=== PATIENT | male | born 1955 | race Caucasian/White ===

== ENCOUNTER 2016-11-27 02:55 | Emergency (ER) | payer BC ==
[2016-11-27] MEDS ORDERED: ONDANSETRON HCL/PF 2 MG/ML VIAL ONE (03:03)
[2016-11-27 03:30] LABS: Hematocrit 43.1 % (42.0-52.0); Hemoglobin 14.7 gm/dL (13.5-18.0); Mean Cell Volume 85.2 fl (78-100); Mean Corpuscular Hemoglobin 29.1 pg (27-31); Mean Corpuscular Hgb Conc 34.1 g/dl (32-36); Mean Platelet Volume 9.9 fl (6.0-9.5); Neutrophil # 5.5 K/mm3 (1.3-6.0); Neutrophil % 69.4 % (42-75.0); Platelet Count 220 K/mm3 (150-450); Red Blood Count 5.06 M/mm3 (4.7-6.0); Red Cell Distribution Width 12.2 % (11.5-14.0); White Blood Count 7.9 K/mm3 (4.0-10.5)
[2016-11-27 03:39] LABS: Carboxyhemoglobin % 0.5 % (0.5-1.5); Methemoglobin % 0.4 % (0.41-1.15)
--- NOTE | 2016-11-27 03:41 | ERNOTE ---
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 HE SAYS HE HAS USED IT MANY TIMES BEFORE AND NEVER HAD A PROBLEM. HE REMEMBERS FEELING NAUSEATED AND SWEATY AND HE WENT DOWN TO THE FLOOR GENTLY AND PASSED OUT. A CO-WORKER CALLED EMS. HE IS UNSURE HOW LONG HE WAS OUT BUT CAME TO AND THEN HAD ANOTHER SPELL OF 10-15 SEC OF "PASSING OUT" WITNESSED BY EMS. RIGHT NOW HE IS ALERT, NO PAIN BUT HAS NAUSEA AND VOMITING. HE DENIES ANY PAIN. SAYS HE IS HEALTHY , ONLY TAKING A CHOLESTEROL MEDICATION. CO WORKER IS FINE. HE LAST ATE ABOUT 1800 AT [employer]. Prior Episodes: Present: no prior history Symptoms prior to episode: Present: diaphoresis, light headedness, nausea Character of event: Present: became unresponsive. Absent: seizure activity observed Location of Injury: Present: none Current Symptoms: Present: nausea, vomiting Review of Systems - Review of Systems Constitutional: Present: See HPI EYE: Present: no symptoms reported ENT: Present: no symptoms reported Respiratory: Present: no symptoms reported Cardiology: Present: no symptoms reported Gastrointestinal/Abdominal: Present: See HPI, nausea, vomiting Genitourinary: Present: no symptoms reported Musculoskeletal: Present: no symptoms reported Skin: Present: no symptoms reported Neurological: Present: See HPI, dizziness/light-headedness Endocrine: Present: no symptoms reported Hematologic/Lymphatic: Present: no symptoms reported Psych: Present: no symptoms reported All Other Systems: All systems neg except as marked - Patient's Past Medical History Patient History - Medical: No pertinent hx Patient History - Cardiac/Respiratory: Hypertension, Hyperlipidemia Patient History - Cancer: No Hx of Cancer Patient History - Surgical Procedures: No surgical history, Orthopedic - FX LEG SURGERY CHILD Patient History - Other: None - Social History Living Situations: home Psych History: No pertinent hx Smoking Status: Never smoker Alcohol Use: occasionally - NONE IN 24 HRS Drug Use: none - Immunizations Immunizations Up to Date: Yes Hx Pneumococcal Vaccination: No History of Influenza Vaccine: No Physical Exam - Physical Exam General Appearance: Present: wd/wn, alert, mild distress - SWEATY. Eye Exam: Normal inspection: bilateral, PERRL: bilateral, EOMI: bilateral Ears, Nose, Throat: Present: normal ENT inspection Neck: Present: normal inspection, nontender Respiratory: Present: no respiratory distress, normal breath sounds, no accessory muscle use, chest nontender, lungs clear Cardiovascular/Chest: Present: regular rate, rhythm, no murmur, normal peripheral pulses Gastrointestinal/Abdominal: Present: normal bowel sounds, nontender, nondistended, soft, no organomegaly Back Exam: Present: normal inspection, normal range of motion, no vertebral tenderness Extremity Exam: Present: normal inspection, non-tender, normal range of motion, no edema Neurological Exam: Present: alert, oriented, normal mood/affect, no motor/ sensory deficits Skin Exam: Present: normal color, diaphoresis ED Progress - Results and Orders Patient's Lab Results:: I have reviewed the patient's lab results. Results and Orders: CBC = NORMAL , CMP NEG. ABG = LOW PCO2 20 WITH PH = 7.35. CO NEG. UA AND UDS = NEG. - Vital Signs Patient's Vital Signs:: I have reviewed the patient's vital signs. Vital Signs: Vital Signs 11/27/16 02:58 Temperature 35.7 C L Pulse Rate 82 Respiratory 16 Rate Blood Pressure 148/100 O2 Sat by Pulse 98 Oximetry HYPERTENSIVE. - EKG EKG: NSR EKG read: Interp. by me - X-Ray X-Ray #1 X-Ray: chest Interpretation: Interp. by me - WNL THOUGH IS A POOR INSPIRATORY FILM - Progress/Reassessment Chief Complaint: Syncopal Episode Progress:: Improved - Transfer of Care Expected Disposition: Discharge Departure Clinical Impression: Syncope and collapse, Nausea and vomiting in adult patient - Departure Disposition: Home Follow Up Needed Condition: Fair Instructions: Syncope, [id number], Nausea, Adult Additional Instructions: REST AT HOME. NO WORK TODAY. STICK WITH CLEAR LIQUIDS ONLY, FREQUENT SMALL AMOUNTS. USE THE ZOFRAN IF MORE VOMITING. RECHECK WITH YOUR FAMILY DOCTOR IF WORSE OR NOT IMPROVING IN 1-2 DAY . WHEN VOMITING STOPS, GRADUALLY INCREASE YOUR DIET BACK TO NORMAL WITH SIMPLE SOLIDS FIRST. POISON CONTROL DID NOT THINK THE STRIPPER WAS A CAUSE FOR THE VOMITING AND FAINTING./ Prescriptions: Ondansetron [Zofran Odt] 4 mg PO Q6H PRN #7 tab PRN Reason: Vomiting
[2016-11-27 03:58] LABS: ALT 29 U/L (19-67); AST 26 U/L (0-48); Albumin * 3.8 gm/dl (3.4-5.0); Alkaline Phosphatase * 68 U/L (50-170); Anion Gap 15.1 mmol/L (6.8-13.8); BUN/Creatinine Ratio 15.4 (9.0-21.6); Bilirubin, Total 0.5 mg/dL (0.0-1.1); Blood Urea Nitrogen 16 mg/dL (6-23); Ca. Corrected For Albumin 8.2 mg/dL (8.4-10.2); Calcium * 8.4 mg/dL (7.9-10.9); Carbon Dioxide 24.6 mmol/L (24-32.6); Chloride 108 mmol/L (97-106); Glucose * 185 mg/dL (70-110); Potassium 3.7 mmol/L (3.4-4.6); Sodium 144 mmol/L (132-142); Total Protein 6.9 gm/dL (6.2-8.2)
[2016-11-27 03:59] LABS: Troponin I Less than 0.017 ng/ml (0.00-0.10)
[2016-11-27 04:07] LABS: Urine Bilirubin Negative (NEGATIVE); Urine Blood Negative /ul (NEGATIVE); Urine Ketone Negative (NEGATIVE); Urine Nitrite Negative (NEGATIVE); Urine Protein Negative (NEGATIVE); Urine Specific Gravity >=1.030 SP.GR. (1.005-1.030); Urine Urobilinogen Normal (NORMAL)
[2016-11-27 04:15] LABS: Urine Appearance Clear; Urine Bacteria TRACE; Urine Color Yellow; Urine RBC None Seen /hpf (0-5); Urine WBC None Seen /hpf (0-5)
[2016-11-27 04:28] LABS: Cocaine Ur Negative (NEGATIVE); Urine Barbiturate Negative (NEGATIVE); Urine Benzodiazepines Negative (NEGATIVE); Urine Opiates Negative (NEGATIVE); Urine PCP Negative (NEGATIVE); Urine THC Negative (NEGATIVE)
[2016-11-27] MEDS ORDERED: PROMETHAZINE HCL 50 MG/ML AMPUL IM ONE ×3 (06:07→06:14)
[2016-11-27] MEDS ORDERED: ONDANSETRON HCL/PF 2 MG/ML VIAL IV ONE (06:12)
[2016-11-27 06:18] VITALS: BP 128/86
== END 2016-11-27 06:26 | disposition home or self-care (01) ==
LOC: ER 02:55
PROC: 4A033R1 Measurement of Arterial Saturation, Peripheral, Percutaneous Approach (ICD-10-PCS; principal; 2016-11-27)
DX: R55 Syncope and collapse (principal); R11.2 Nausea with vomiting, unspecified
CPT/HCPCS: 36415; 36600; 71020; 80053; 80307; 81001; 82375; 82803; 84484; 85025; 93005; 94762; 96372; 96374; 99283; G0481; J2405